=== PATIENT | female | born 1995 | race Caucasian/White ===

== ENCOUNTER → 2021-05-28 | Day surgery (SDC) | payer OTHER ==
[~2021-05-28] MED LIST: AMOXICILLIN PO; CLARITIN10 MG PO; HYDROCODONE-AC1 EACH PO; IBUPROFEN600 MG PO
[2021-05-28 07:07] LABS: HEMOGLOBIN 12.3 gm/dl (12.3-15.3); RED BLOOD COUNT 4.41 M/UL (4.00-5.10); WHITE BLOOD COUNT 8.5 K/UL (4.5-11.0)
== END | disposition home or self-care (01) ==
LOC: OR 06:25
PROVIDERS: Obstetrics & Gynecology
DX: O02.1 Missed abortion (principal); F17.210 Nicotine dependence, cigarettes, uncomplicated; Z20.822 Contact with and (suspected) exposure to COVID-19
CPT/HCPCS: 85025; J1100; J1885; J2001; J2250; J2405; J2704; J2795; J3010; J7120; U0002